=== PATIENT | male | born 1970 | race Caucasian/White ===

== ENCOUNTER 2017-01-01 01:18 | Emergency (ER) | payer OTHER ==
[~2017-01-01] VITALS: Ht 180.3 cm; Wt 78.6 kg
[~2017-01-01 01:18] MED LIST: ADVIL MIGRAINE200 MG PO; ATARAX,VISTARIL50 MG PO; COUGH DROPS1 EAC1 MM; IBUPROFEN200 M1 PO; PAROXETINE HCL20 MG PO; PAXIL20 MG PO; ROBITUSSIN100 MG/5 M PO
[2017-01-01 02:08] LABS: HEMATOCRIT 34.8 % (38.0-50.0); MCH 31.5 PG (29.0-34.0); MCHC 36.2 G/DL (30.0-36.0); MEAN PLAT.VOLUME 8.8 uM^3 (9.0-12.4); PLATELET COUNT 277 K/uL (156-360); RBC DIS.WIDTH-CV 12.1 % (11.8-14.6); RBC DIS.WIDTH-SD 38.8 % (39-53); WHITE BLOOD COUNT 8.5 K/uL (4.1-10.2)
[2017-01-01 02:17] LABS: ADD MIUA? YES; BILIRUBIN NEGATIVE; BLOOD SMALL; COLOR YELLOW ((YELLOW)); GLUCOSE (STRIP) NEGATIVE; KETONES NEGATIVE; LEUKOCYTES NEGATIVE; NITRITE NEGATIVE; PROTEIN (STRIP) NEGATIVE; SPECIFIC GRAVITY 1.015 (1.000-1.030); UROBILINOGEN 0.2 MG/DL (0.2-1.0)
[2017-01-01 02:24] LABS: CHLORIDE 100 mEq/L (99-109); POTASSIUM 3.6 mEq/L (3.7-5.4); SODIUM 132 mEq/L (136-147)
[2017-01-01 02:26] LABS: GLUCOSE 108 mg/dL (70-99)
[2017-01-01 02:27] LABS: ANION GAP 11 MEQ/L (2-14)
[2017-01-01 02:27] LABS: BACTERIA NONE SEEN /HPF; EPITHELIAL CELLS RARE /HPF; MUCUS TRACE /LPF; UCUL ADDED? NO; WHITE BLOOD CELLS 0-5 /HPF (0-5)
[2017-01-01 02:28] LABS: TOTAL BILIRUBIN 0.1 mg/dL (0.0-1.0)
[2017-01-01 02:29] LABS: ALKALINE PHOSPHATASE 92 IU/L (3-129)
[2017-01-01 02:30] LABS: GFR ESTIMATE (CALCULATED) > 59 mL/min/
[2017-01-01 02:31] LABS: UREA NITROGEN (BUN) 10 mg/dL (9-23)
[2017-01-01 02:33] LABS: LIPASE 26 U/L (1.0-51.0)
[2017-01-01] MEDS ORDERED: ZOFRAN8 MG PO (05:53)
[2017-01-01] MEDS ORDERED: BENTYL20 MG PO (05:53)
[2017-01-01 06:24] VITALS: BP 154/103
== END 2017-01-01 06:24 | disposition home or self-care (01) ==
LOC: EME 01:18
DX: A08.4 Viral intestinal infection, unspecified (principal); R31.9 Hematuria, unspecified; N20.0 Calculus of kidney; K57.30 Diverticulosis of large intestine without perforation or abscess without bleeding; F17.200 Nicotine dependence, unspecified, uncomplicated
CPT/HCPCS: 74176; 80053; 81003; 83690; 85027; 99281; 99284

== ENCOUNTER 2017-06-26 23:30 | Emergency (ER) | payer OTHER ==
[~2017-06-26] VITALS: Ht 180.3 cm; Wt 73.7 kg
[~2017-06-26 23:30] MED LIST changes: +BENTYL20 MG PO; +ZOFRAN8 MG PO
[2017-06-26 23:33] VITALS: BP 162/99
[2017-06-26] MEDS ORDERED: AMOXICILLIN500 MG PO (23:47)
[2017-06-26] MEDS ORDERED: MOTRIN600 MG PO (23:47)
== END 2017-06-27 00:04 | disposition home or self-care (01) ==
LOC: EME 23:30
DX: J02.9 Acute pharyngitis, unspecified (principal); R05 Cough; F17.200 Nicotine dependence, unspecified, uncomplicated
CPT/HCPCS: 99281; 99284